=== PATIENT | male | born 1960 | race Hispanic/Latino ===

== ENCOUNTER 2024-04-13 14:24 | Emergency (ER) | payer BC ==
[~2024-04-13] VITALS: Ht 177.8 cm; Wt 87.7 kg
[2024-04-13 14:29] VITALS: PULSE 66; RESP 16; TEMP 99.1; O2SAT 95
[2024-04-13] MEDS: BACITRACIN ZINC 0.9GM TP ONE (17:24)
[2024-04-13] MEDS: LIDOCAINE HCL 2% LOCAL 20 ML VIAL INJ STA (17:24)
== END 2024-04-13 15:06 | disposition home or self-care (01) ==
LOC: FSED 14:29
DX: S61.212A Laceration without foreign body of right middle finger without damage to nail, initial encounter (principal); W26.0XXA Contact with knife, initial encounter; Y92.89 Other specified places as the place of occurrence of the external cause; I10 Essential (primary) hypertension
CPT/HCPCS: 12002; 96372; 99283; J2001